=== PATIENT | female | born 2000 | race Hispanic/Latino ===

== ENCOUNTER 2019-03-27 08:15 | Outpatient (CLI) | payer BC ==
--- NOTE | 2019-03-27 09:14 | ULT ---
Thyroid ultrasound: 03/27/2019 COMPARISON: None HISTORY: Thyroid goiter TECHNIQUE: Multiplanar grayscale sonographic imaging of the thyroid gland obtained. FINDINGS: The thyroid parenchyma is mildly heterogeneous bilaterally with no discrete/dominant nodule noted. Thyroid isthmus measures 3 mm in AP dimension. The right lobe measures 1.2 x 4.9 x 1.5 cm and the left lobe measures 1.2 x 4.6 x 1.1 cm. IMPRESSION: Heterogeneity of the thyroid parenchyma with no thyroid nodule noted.
== END 2019-03-27 08:16 | disposition home or self-care (01) ==
LOC: BICULT 08:15
DX: E04.9 Nontoxic goiter, unspecified (principal)
CPT/HCPCS: 76536